=== PATIENT | female | born 1980 | race Caucasian/White ===

== ENCOUNTER 2017-07-11 17:02 | Emergency (ER) | payer OTHER ==
--- NOTE | 2017-07-11 18:19 | ED Physician Documentation ---
PD HPI HEADACHE - Stated complaint Stated Complaint: HEADACHE - Chief complaint Chief Complaint: Neuro - History obtained from History obtained from: Patient - History of Present Illness Timing - onset: How many weeks ago (1) Timing - onset during: Light activity Timing - details: Gradual onset, Still present (has had headache top of head to left side for a week. Noted red sore there the past few days, tender to touch. No draiange.) Worst headache ever?: No: Worst headache ever? Location: Left, Other (top of head) Quality: Throbbing, Aching Associated symptoms: Nausea. No: Fever, Stiff neck, Weakness, Numbness, Seizure Improved by: Rest Worsened by: No: Light, Noise Contributing factors: No: Anticoagulated, Hypertension, Recent illness, Trauma Similar symptoms before: Has not had sx before (has some migraines in the past, but no prior scalp sores) Recently seen: Not recently seen Review of Systems Constitutional: denies: Fever, Chills, Myalgias Eyes: denies: Loss of vision, Decreased vision, Photophobia Nose: denies: Rhinorrhea / runny nose, Congestion Throat: denies: Sore throat Cardiac: denies: Chest pain / pressure, Palpitations Respiratory: denies: Dyspnea, Cough GI: reports: Abdominal Pain, Nausea. 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 - Present Medications Home Medications: Ambulatory Orders Medication Instructions Recorded Confirmed Doxycycline Monohydrate 100 mg PO BID #14 tablet 07/11/17 Gabapentin [Neurontin] 100 mg PO TID 07/11/17 07/11/17 Naproxen 375 mg PO BID #20 tablet 07/11/17 Ondansetron HCl [Zofran] 4 mg PO Q6H PRN #20 tablet 07/11/17 SUMAtriptan [Imitrex] 25 mg PO ONCE 07/11/17 07/11/17 Tramadol HCl 50 mg PO Q6H PRN #20 tablet 07/11/17 traMADol [Ultram] 07/11/17 07/11/17 - Allergies Allergies/Adverse Reactions: Allergies Allergy/AdvReac Type Severity Reaction Status Date / Time iodine Allergy Unknown Verified 03/13/18 17:17 Sulfa (Sulfonamide Allergy Unknown Verified 07/11/17 17:17 Antibiotics) PD ED PE NORMAL - Vitals Vital signs reviewed: Yes - General General: Alert and oriented X 3, No acute distress, Well developed/nourished - HEENT HEENT: PERRL (not light sensitive), Pharynx benign - Neck Neck: Supple, no meningeal sign, No adenopathy - Cardiac Cardiac: RRR, No murmur - Respiratory Respiratory: Clear bilaterally - Abdomen Abdomen: Soft, Non tender - Derm Derm: Normal color, Warm and dry, No rash - Extremities Extremities: No deformity, No tenderness to palpate, No edema, No calf tenderness / cord - Neuro Neuro: Alert and oriented X 3, No motor deficit, No sensory deficit Eye Opening: Spontaneous Motor: Obeys Commands Verbal: Oriented GCS Score: 15 - Psych Psych: Normal mood Results - Vitals Vitals: Oxygen O2 Source Room air PD MEDICAL DECISION MAKING - ED course Complexity details: considered differential (local infection without pattern to it and headache. Not sensitive to touch per se but tender around the sore on scalp. Not in the pattern for shingles (as yet).), d/w patient Departure - Departure Disposition: 01 Home, Self Care Clinical Impression: Nausea vomiting and diarrhea, Infection of scalp Headache Qualifiers: Headache type: other headache syndrome Qualified Code(s): G44.89 - Other headache syndrome Condition: Stable Record reviewed to determine appropriate education?: Yes Instructions: ED Cephalgia Unspecified, ED Nausea Vomiting Follow-Up: Arelis Schuler MD [Primary Care Provider] - Prescriptions: Doxycycline Monohydrate 100 mg PO BID #14 tablet Naproxen 375 mg PO BID #20 tablet Ondansetron HCl [Zofran] 4 mg PO Q6H PRN #20 tablet PRN Reason: Nausea / Vomiting Tramadol HCl 50 mg PO Q6H PRN #20 tablet PRN Reason: Pain Comments: The main symptoms with some headache nausea vomiting diarrhea and not feeling well sound like a viral illness. This may be causing some migraine type symptoms. However the scalp is tender in the area around the redness and sore and so looks like a skin infection there. I do not think they are all connected per se. Use doxycycline twice daily and cleanse the scalp sore once or twice daily. For the nausea use ondansetron. Add Tylenol or tramadol if needed for pain. Naproxen twice daily as an anti-inflammatory for general aches and symptoms. Recheck if not improving over the next couple of days. Forms: Activity restrictions Discharge Date/Time: 07/11/17 20:00
[2017-07-11] MEDS ORDERED: ACETAMINOPHEN 325 MG TABLET PO STA (19:12)
[2017-07-11] MEDS ORDERED: DOXYCYCLINE 100 MG TABLET PO STA (19:12)
[2017-07-11] MEDS ORDERED: ONDANSETRON ODT 4 MG TABLET TL STA (19:12)
[2017-07-11] MEDS ORDERED: DEXAMETHASONE 10 MG/ML VIAL PO STA (19:12)
[2017-07-11] MEDS ORDERED: DIPHENOX/ATROPINE 2.5/0.025 MG TABLET PO STA (19:18)
[2017-07-11 19:29] VITALS: BP 136/92
== END 2017-07-11 20:00 | disposition home or self-care (01) ==
LOC: ED 17:02
DX: L08.9 Local infection of the skin and subcutaneous tissue, unspecified (principal); G44.89 Other headache syndrome; R11.2 Nausea with vomiting, unspecified; R19.7 Diarrhea, unspecified
CPT/HCPCS: 81599; 99283; A9270; Q0162; 87252

== ENCOUNTER 2019-01-01 14:09 | Outpatient (CLI) | payer OTHER ==
--- NOTE | 2019-01-01 21:35 | SLEEP CARE CONSULTATION ---
Information from patient questionnaire entered by Mare Page. I have reviewed and concur with the information entered by Mare Page. This document represents the service I personally performed and the decisions made by me, Liz Lopez MD, [facility]. History of Present Illness Reason for Visit: New patient Chief Complaint: reports: Insomnia, Unrefreshed sleep, Excessive daytime sleepiness, Observed pauses in breathing, Fatigue, Frequent awakenings at night Duration of Symptoms: 3 YEARS - WORSE IN LAST 8 MONTHS Usual bedtime: 2200 Time it takes to fall asleep: 120 MINUTES Snores at night: No (NOT USUALLY) Observed to quit breathing while asleep: Yes Sleeps alone due to snoring: No Number of times waking at night: 3-4 Reasons for waking at night: reports: Gasping for air, Pain, Bathroom, Other (NOT SLEEPY) Toss, Turn, or Twitch while sleeping: Yes Recalls having dreams: Yes Usually gets out of bed at: 0645 Feels refreshed in the morning: No Morning headache: Yes Sleepy or fatigued during the day: Yes Ever fallen asleep while driving: Yes Takes day naps: No Dreams during day naps: Yes Prior sleep studies: Yes Year and Where: 2014 [place], [place] Additional HPI information: I had the pleasure of seeing Ms. Levine today regarding the possibility of her having a sleep disorder. As you know, she is a 38 year old lady who complains of insomnia, observed apneas, frequent awakenings, nocturnal choking, unrefreshed sleep, persistent fatigue, and excessive daytime sleepiness. In 2014 she had a sleep study performed in [place], [place]. The study showed periodic leg movement of sleep. There was no report. Since then she gained 30 lbs. The patient tells me that she normally goes to bed around 10 pm, and it takes her approximately 2 hours to fall asleep. She takes melatonin. She has been told that she snores loudly and irregularly at night. She has also been observed to stop breathing in her sleep. She sleeps alone. She can recall waking up on the average of 3 - 4 times during the night. Most of the time she wakes up because of having to use the bathroom and pain. She has awakened occasionally because of her own snoring, choking, and having to gasp for air. There is not a lot of tossing and turning in her sleep. No somniloquy (sleep talking) or somnambulism (sleep walking). Generally she can recall having dreams. In the morning she usually gets up out of the bed around 6:45 a.m. (same time on the weekends) not feeling refreshed nor rested. She usually does have a morning headache that lasts about an hour. During the day she complains of feeling sleepy and fatigued. Her score on [place] Sleepiness Scale is 18 out of 24. She has never fallen asleep while driving nor has had any accident due to sleepiness. She takes a nap on the weekend. Upon falling asleep during the day she reports having dreams. She has never had sleep paralysis, experienced cataplexy but reports symptoms of restless leg syndrome. She reports having impaired concentration during the day. 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 Patient is Single and lives in [place]. Have you smoked in the past 12 months: Yes Years of smokin Alcohol use: Yes Alcohol amount and frequency: 1-2 DRINKS 3-4 TIMES/WEEK Caffeine use: No Family History Family history of sleep disordered breathing: Yes Allergies and Home Medications Drug allergies reviewed: Yes Home medication list reviewed: Yes Review of Systems Weight gain over past 5 years: 30 Cardiovascular: reports: irregular heart rate or pulse Respiratory: reports: wheeze Gastrointestinal: reports: nausea, vomitting, abdominal pain Neurological: reports: headaches Psychiatric: reports: anxiety Ear/Nose/Throat: reports: nasal congestion, sinus problems, tonsillectomy Endocrine: denies: thyroid disease, history of goiter, sluggishness, too hot or cold, excessive thirst, increased appetite, increased urination, unexplained weakness, other Musculoskeletal: reports: joint pain, neck pain, muscle pain or cramping Immunologic: reports: sneezing, rash, itching, allergies to food or environment Physical Exam Vital signs obtained and entered by: Dr. Lopez Blood Pressure: 110/80 Cuff size: long Heart Rate: 96 O2 Saturation: 97 Height: 5 ft 6 in Weight (kg): 163 lb Body Mass Index: 26.3 BMI Classification: Overweight Neck circumference: 15 Mood/affect: normal HEENT: No craniofacial malformation Nostrils: patent to airflow Turbinates: normal Septum: midline Mouth and throat: narrow oropharynx Soft palate: long Hard palate: normal Uvula: normal Uvula visualization: 50% Mallampati Class II Tongue: enlarged in size with teeth alva on lateral edges Tonsils: absent bilaterally Chin and jaw: normal size and position Neck: normal w/o lymphadenopathy or thyromegaly Heart: regular rate and rhythm Lungs: clear bilaterally Abdomen: soft Extremities: no edema or clubbing Neurologic: intact Impression and Plan IMPRESSION: 1. Obstructive Sleep Apnea-Hypopnea Syndrome, as suggested by history of loud and irregular snoring, observed cessation of breath while asleep, frequent awakenings during the night, unrefreshed sleep, nocturnal choking, cognitive impairment, and daytime hypersomnolence. Narrow oropharynx and obesity are com mon predisposing factors for obstructive sleep apnea-hypopnea syndrome. Pathophysiology of sleep-disordered breathing was discussed. I recommend proceeding to polysomnography to confirm the diagnosis and to assess severity. I informed the patient of what the sleep studies involve and after some discussion, she agreed to proceed. Plan: 1. Schedule polysomnography and return in 1 to 2 weeks after the study to discuss result and initiate therapy. 2. Avoid long distance driving or when feeling sleepy. 3. Avoid alcohol, sedative and muscle relaxant around bedtime. 4. Attempt to lose weight. I spent 100% of this 15 minute visit face to face with the patient with greater than 50% of this was spent time counseling the patient and coordination of care.
[2019-01-01 21:36] VITALS: BP 110/80
== END 2019-01-01 14:10 | disposition home or self-care (01) ==
LOC: SC 14:09
PROVIDERS: ATTEND Internal Medicine Pulmonary Disease
DX: R06.83 Snoring (principal); R06.81 Apnea, not elsewhere classified; G47.8 Other sleep disorders; R41.89 Other symptoms and signs involving cognitive functions and awareness; G47.10 Hypersomnia, unspecified
CPT/HCPCS: 99203; 99212

== ENCOUNTER 2019-01-24 20:54 | Outpatient (CLI) | payer OTHER | END 2019-01-24 20:55 | disposition home or self-care (01) | LOC: SC 20:54 | PROVIDERS: ATTEND Internal Medicine Pulmonary Disease | DX: R06.83 Snoring (principal) | CPT/HCPCS: 95810 ==

== ENCOUNTER 2019-02-25 14:50 | Outpatient (CLI) | payer OTHER ==
--- NOTE | 2019-02-25 16:33 | SLEEP CARE CONSULTATION ---
Information from patient questionnaire entered by Mare Page. I have reviewed and concur with the information entered by Mare Page. This document represents the service I personally performed and the decisions made by me, Liz Lopez MD, [facility]. History of Present Illness Initial [place] Sleepiness Scale score: 18 Current [place] Sleepiness Scale score: 15 Additional HPI information: HPI: returned for follow up of the sleep study she had on 01/24/2019. The polysomnography showed that the patient had normal sleep efficiency. The sleep architecture was normal. Respiratory monitoring showed no significant sleep disordered breathing (AI = 4.6) or hypoxia (beulah oxygen saturation of 85% only 0.8% to the total sleep time was spent with oxygen saturation below 90%). The few respiratory events occurred mainly during supine sleep (supine AHI = 4.9; non-supine = 2.30). Snore was light to moderate in intensity. There was no significant periodic leg movement of sleep. Cardiac rhythm was normal sinus rhythm without significant arrhythmia. No abnormal behavior (parasomnia) observed during the night. The patient was informed of these findings. I explained to her that there was no sleep disrupting conditions. Her sleep efficiency and architecture was also normal. The patient took zolpidem 10 mg for the sleep study. Allergies and Home Medications Drug allergies reviewed: Yes Home medication list reviewed: Yes Review of Systems Review of systems same as previous: Yes Physical Exam Weight: 163 lb Impression and Plan IMPRESSION: 1. Insomnia, due to delayed sleep phase syndrome. On weekends she goes to bed 1 2 hours later and wakes up 1 2 hours later. Therefore, on weeknights it is difficult for her to fall asleep early at 10 pm. I advised her to keep her sleep-wake schedule the same on weekdays and weekends. She would like to have more zolpidem to take at home. I recommend taking it regularly. Once or twice a week is reasonable PLAN: 1. [place] I will leave it up to her primary care provider to prescribe the patient zolpidem for occasional use. 2. Avoid weight gain. 3. Return to the sleep clinic on as needed basis. I spent 100% of this 20 minute visit face to face with the patient with greater than 50% of this was spent time counseling the patient and coordination of care.
== END 2019-02-25 14:51 | disposition home or self-care (01) ==
LOC: SC 14:50
PROVIDERS: ATTEND Internal Medicine Pulmonary Disease
DX: G47.21 Circadian rhythm sleep disorder, delayed sleep phase type (principal); G47.00 Insomnia, unspecified
CPT/HCPCS: 99212; 99213

== ENCOUNTER 2019-07-22 13:33 | Emergency (ER) | payer OTHER ==
--- NOTE | 2019-07-22 14:03 | ED Physician Documentation ---
PD HPI HEAD INJURY - Stated complaint Stated Complaint: HEAD INJURY - Chief complaint Chief Complaint: Neuro - History obtained from History obtained from: Patient - History of Present Illness Mechanism of head injury: Fell Where head injury occurred: Home Timing - onset: Yesterday Location of injury: Right Quality of pain: Pain Associated symptoms: LOC, Amnesia, Nausea / vomiting, Neck pain (Chronic neck pain related to stenosis). No: AMS, Seizures Recently seen: Not recently seen - Additional information Additional information: This is a 39-year-old woman who slipped in the shower she was getting out of the tub yesterday morning fell hitting her head on the tub. She thinks she may have blacked out just quickly there was minimal amount of blood when she got up and she remembers looking at her forehead and it was all swollen on the right side. She went over to see her neighbor they called and talked with family member who is a nurse. They did not feel like she necessarily needed to come into the emergency department because she did not have any other symptoms. This morning she was feeling nauseous and not eating. She feels very "cognitive" fogginess in her right eye feels very heavy. She is is just not altogether clear. She noticed a laceration in her right scalp she cleaned it with a little alcohol and washed all the blood up and out of her hair has not bled any more than that. Osman moralez has a lot of pain and swelling along the right forehead. She does have a headache but denies dizziness. She has chronic neck pain from spinal degenerative changes and spinal stenosis but does not feel that there is anything acute she has no numbness or tingling into her arms or legs or weakness. She was having difficulty sleeping last night every time she would just about drift off she would have a jerking motion that would wake her up. 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 She did have a concussion about 3 years ago. She lives alone with her dog. Review of Systems Eyes: reports: Decreased vision Ears: denies: Loss of hearing Nose: denies: Congestion Throat: reports: Other (She did not bite inside of her mouth) GI: reports: Nausea. denies: Vomiting Skin: reports: Laceration (s) (Right scalp), Other (Abrasion to the right forehead. Bruising and swelling of the right forehead) Musculoskeletal: reports: Neck pain (Chronic) Neurologic: reports: Headache, Head injury, LOC, Other (Feels foggy). 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 : None Musculoskeletal: None - Past Surgical History General: Other Ortho: Other - Present Medications Home Medications: Ambulatory Orders Medication Instructions Recorded Confirmed Doxycycline Monohydrate 100 mg PO BID #14 tablet 07/11/17 Gabapentin [Neurontin] 100 mg PO TID 07/11/17 07/11/17 Naproxen 375 mg PO BID #20 tablet 07/11/17 Ondansetron HCl [Zofran] 4 mg PO Q6H PRN #20 tablet 07/11/17 SUMAtriptan [Imitrex] 25 mg PO ONCE 07/11/17 07/11/17 Tramadol HCl 50 mg PO Q6H PRN #20 tablet 07/11/17 traMADol [Ultram] 07/11/17 07/11/17 Ondansetron Odt [Zofran] 4 mg TL Q6H PRN #10 tablet 07/22/19 - Allergies Allergies/Adverse Reactions: Allergies Allergy/AdvReac Type Severity Reaction Status Date / Time iodine Allergy Unknown Verified 07/11/17 17:17 Sulfa (Sulfonamide Allergy Unknown Verified 07/11/17 17:17 Antibiotics) - Social History Does the pt smoke?: No Smoking Status: Never smoker Does the pt have substance abuse?: No PD ED PE NORMAL - Vitals Vital signs reviewed: Yes - General General: Alert and oriented X 3, No acute distress, Well developed/nourished - HEENT HEENT: PERRL, EOMI, Ears normal (No hemotympanum), Moist mucous membranes (No intraoral lacerations), Pharynx benign (Uvula rises in the midline), Other (There is an approximate 4 cm laceration in the right scalp over the temporal parietal region. There is a little hematoma associated with this but no active bleeding and is already scabbed over. There is an abrasion over the right eyebrow and ecchymosis of the right upper eyelid. There is extreme tenderness and swelling of the right forehead and along the superior and lateral orbital rims. Extraocular muscles are intact. There is no subconjunctival hemorrhage and no hyphema. 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, No motor deficit, No sensory deficit, Normal speech, Other (Reflexes 2+ and symmetrical at the quadriceps b ilaterally) - Psych Psych: Normal mood, Normal affect Results - Vitals Vitals: Vital Signs - 24 hr 07/22/19 07/22/19 13:38 15:48 Temperature 37.1 C Heart Rate 106 H 95 Respiratory 18 18 Rate Blood Pressure 149/111 H 157/105 H O2 Saturation 97 97 Oxygen O2 Source Room air - Rads (name of study) CT head Radiology: See rad report (neg acute) Ct orbits Radiology: See rad report (neg fracture) PD MEDICAL DECISION MAKING - ED course Complexity details: reviewed results, re-evaluated patient, d/w patient ED course: CT head and orbits were negative for any acute intracranial hemorrhage or or bital fracture. Results were discussed with the patient. Have recommended that she do ice take Tylenol or ibuprofen if needed for headache or pain. [place] if she continues to feel "foggy". We did discuss using some glue on the laceration in her scalp but since it was already so well-healed and no longer bleeding she is declined any type of intervention to it. Departure - Departure Disposition: 01 Home, Self Care Clinical Impression: Head injury Qualifiers: Encounter type: initial encounter Qualified Code(s): S09.90XA - Unspecified injury of head, initial encounter Condition: Good Instructions: ED Head Injury Closed Follow-Up: FELIX Obrien [Provider Group] Prescriptions: Ondansetron Odt [Zofran] 4 mg TL Q6H PRN #10 tablet PRN Reason: Nausea / Vomiting Comments: Ice the areas of your scalp that are tender and sore. It is okay to take Tylenol and ibuprofen or Aleve for the pain. [place] you continue to have feelings that your cognition is foggy so that they can do cognitive screening. He should avoid any activities where you might suffer another blow t o the head for at least the next 2 weeks. Discharge Date/Time: 07/22/19 15:50
--- NOTE | 2019-07-22 15:04 | CT Report ---
Reason: trauma Procedure Date: 07/22/2019 Accession Number: [id number] / [id number] Procedure: CT - ORBITS WO CPT Code: Final Report FULL RESULT: EXAM: CT MAXILLOFACIAL WITHOUT CONTRAST EXAM DATE: 07/22/2019 02:27 PM. CLINICAL HISTORY: Trauma. Fell yesterday on bathtub. COMPARISONS: None. TECHNIQUE: Thin-section axial images were acquired of the face without contrast. Post-processing: Coronal and sagittal reformats. Other: None. In accordance with CT protocol optimization, one or more of the following dose reduction techniques were utilized for this exam: automated exposure control, adjustment of mA and/or KV based on patient size, or use of iterative reconstructive technique. FINDINGS: Soft Tissue: The infratemporal fossa and parapharyngeal spaces are unremarkable. Orbits: Symmetric and unremarkable. Bones: No fracture or bone lesion. Temporomandibular Joints: The temporomandibular joints are symmetric and normally located. Left temporomandibular joint degenerative changes. Sinuses: Bilateral maxillary antral mucosal thickening. Right maxillary antral mucosal retention cyst. Probable prior sinus surgery with bilateral maxillary antral windows and partial ethmoid resection. Other: None. IMPRESSION: 1. No orbital fracture. 2. Left temporomandibular joint degenerative changes. RADIA
--- NOTE | 2019-07-22 15:16 | CT Report ---
Reason: head injury Procedure Date: 07/22/2019 Accession Number: [id number] / [id number] Procedure: CT - HEAD WO CPT Code: Final Report FULL RESULT: EXAM: CT HEAD EXAM DATE: 07/22/2019 02:27 PM. CLINICAL HISTORY: Head injury. Fall in bathtub yesterday. Headache. Possible loss of consciousness. COMPARISON: ORBITS W/O 07/22/2019 2:14 PM. TECHNIQUE: Multiaxial CT images were obtained from the foramen magnum to the vertex. Reformats: Sagittal and coronal. IV contrast: None. In accordance with CT protocol optimization, one or more of the following dose reduction techniques were utilized for this exam: automated exposure control, adjustment of mA and/or KV based on patient size, or use of iterative reconstructive technique. FINDINGS: Parenchyma: No intraparenchymal hemorrhage. No evidence of mass, midline shift, or CT findings of infarction. Daniels-white differentiation is distinct. Extraaxial Spaces: Normal for age. No subdural or epidural collections identified. Ventricles: Normal in size and position. Sinuses and Orbits: Imaged paranasal sinuses, orbits, and mastoids show no significant abnormality. Bones: No evidence of fracture or calvarial defect. Other: None. IMPRESSION: Normal head CT. RADIA
[2019-07-22] MEDS ORDERED: KETOROLAC 60 MG/2 ML VIAL IM STA (15:31)
[2019-07-22 15:49] VITALS: BP 157/105
== END 2019-07-22 15:50 | disposition home or self-care (01) ==
LOC: ED 13:33
DX: S01.01XA Laceration without foreign body of scalp, initial encounter (principal); S05.11XA Contusion of eyeball and orbital tissues, right eye, initial encounter; S09.90XA Unspecified injury of head, initial encounter; W01.198A Fall on same level from slipping, tripping and stumbling with subsequent striking against other object, initial encounter; Y93.E1 Activity, personal bathing and showering; Y92.002 Bathroom of unspecified non-institutional (private) residence as the place of occurrence of the external cause
CPT/HCPCS: 70450; 70480; 99284